=== PATIENT | male | born 1980 | race African-American/Black ===

== ENCOUNTER 2021-11-20 13:42 | Inpatient (IN) | payer OTHER ==
[2021-11-20] VITALS (12 sets, daily range): BP systolic 121–153; BP diastolic 62–83
[~2021-11-20] VITALS: Ht 180.3 cm; Wt 96.2 kg
[2021-11-20] MEDS ORDERED: MIDAZOLAM HCL/PF 5 MG/5 ML VIAL. ONE (13:47)
[2021-11-20] MEDS ORDERED: fentaNYL PF VIAL 100 MCG/2 ML VIAL ONE (13:47)
[2021-11-20] MEDS ORDERED: HEPARIN for IV BOLUS 10,000 UNIT/10 ML VIAL. ONE (13:52)
[2021-11-20 13:57] LABS: BASO % 1 % (0-3); EOS % 0 % (0-3); HEMATOCRIT 41.8 % (39.0-53.0); LYMPH # 1.9 x10^3/uL (1.0-4.8); LYMPH % 26 % (24-48); MEAN CORPUSCULAR HEMOGLOBIN 29 pg (25-35); MEAN CORPUSCULAR HGB CONC 34 g/dL (31-37); MEAN CORPUSCULAR VOLUME 86 fL (79-100); MONO # 0.6 x10^3/uL (0.0-1.1); MONO % 8 % (0-9); NEUT # 4.8 x10^3/uL (1.8-7.7); NEUT % 65 % (31-73); PLATELET COUNT 281 x10^3/uL (140-400); RED BLOOD COUNT 4.87 x10^6/uL (4.30-5.70); RED CELL DISTRIBUTION WIDTH 15.5 % (11.5-14.5); WHITE BLOOD COUNT 7.4 x10^3/uL (4.0-11.0)
[2021-11-20] MEDS ORDERED: HEPARIN for IV BOLUS 10,000 UNIT/10 ML VIAL. IV ONE (14:00)
[2021-11-20 14:11] LABS: CALCIUM 8.4 mg/dL (8.5-10.1); CREATININE 1.4 mg/dL (0.7-1.3); GFR 55.8; POTASSIUM 3.1 mmol/L (3.5-5.1)
[2021-11-20] MEDS ORDERED: BIVALIRUDIN 250 MG VIAL. IVP ONE ×2 (14:13→14:30)
--- NOTE | 2021-11-20 14:13 | PHYS DOC ---
General Adult EDM: Chief Complaint: CHEST PAIN-CARDIAC NATURE HPI: HPI: 41-year-old male with no known past medical history presents from a nursing home with possible STEMI as called out by EMS. On arrival the patient appears uncomfortable and diaphoretic. States that the middle of his chest started hurting today. No known radiation of the pain. Denies using any drugs. No fever or chills. No vomiting or diarrhea. Denies any trauma. Review of Systems: Review of Systems: Constitutional: Denies fever or chills. [] Eyes: Denies change in visual acuity. [] HENT: Denies nasal congestion or sore throat. [] Respiratory: Denies cough or shortness of breath. [] Cardiovascular: Positive for chest pain GI: Denies abdominal pain, nausea, vomiting, bloody stools or diarrhea. [] : Denies dysuria. [] Musculoskeletal: Denies back pain or joint pain. [] Integument: Denies rash. [] Neurologic: Denies headache, focal weakness or sensory changes. [] Endocrine: Denies polyuria or polydipsia. [] Lymphatic: Denies swollen glands. [] Psychiatric: Denies depression or anxiety. [] Heart Score: C/O Chest Pain: Yes Risk Factors: Risk Factors: DM, Current or recent (<one month) smoker, HTN, HLP, family history of CAD, obesity. Risk Scores: Score 0 - 3: 2.5% MACE over next 6 weeks - Discharge Home Score 4 - 6: 20.3% MACE over next 6 weeks - Admit for Clinical Observation Score 7 - 10: 72.7% MACE over next 6 weeks - Early Invasive Strategies Current Medications: Current Medications Medications (Trade) Dose Ordered Sig/[facility] Start Time Stop Time Status Last Admin Dose Admin Fentanyl Citrate (Fentanyl 2ml Vial) 100 mcg 1X ONCE 11/20/21 14:15 11/20/21 14:16 UNV Heparin Sodium (Porcine) (Heparin Sodium) 2,500 unit 1X ONCE 11/20/21 14:15 11/20/21 14:16 UNV Heparin Sodium/ Sodium Chloride (HEPARIN for ARTERIAL LINE FLUSH) 1,000 unit 1X ONCE 11/20/21 14:15 11/20/21 14:16 UNV Iodixanol (Visipaque 320) 100 ml 1X ONCE 11/20/21 14:15 11/20/21 14:16 UNV Lidocaine HCl (Lidocaine 1% 20ml Vial) 20 ml 1X ONCE 11/20/21 14:15 11/20/21 14:16 UNV Midazolam HCl (Versed) 5 mg 1X ONCE 11/20/21 14:15 11/20/21 14:16 UNV Nitroglycerin (Nitroglycerin) 200 mcg 1X ONCE 11/20/21 14:15 11/20/21 14:16 UNV Verapamil HCl (Verapamil) 2.5 mg 1X ONCE 11/20/21 14:15 11/20/21 14:16 UNV Allergies: Allergies: Allergies Coded Allergies Type Severity Reaction Last Updated Verified No Known Drug Allergies 11/20/21 No Physical Exam: PE: Constitutional: Well developed, well nourished, no acute distress, non-toxic appearance. [] HENT: Normocephalic, atraumatic, bilateral external ears normal, oropharynx moist, no oral exudates, nose normal. [] Eyes: PERRLA, EOMI, conjunctiva normal, no discharge. [] Neck: Normal range of motion, no tenderness, supple, no stridor. [] Cardiovascular:Heart rate regular rhythm, no murmur [] Lungs & Thorax: Bilateral breath sounds clear to auscultation [] Abdomen: Bowel sounds normal, soft, no tenderness, no masses, no pulsatile masses. [] Skin: Warm, dry, no erythema, no rash. [] Back: No tenderness, no CVA tenderness. [] Extremities: No tenderness, no cyanosis, no clubbing, ROM intact, no edema. [] Neurologic: Alert and oriented X 3, normal motor function, normal sensory function, no focal deficits noted. [] Psychologic: Affect normal, judgement normal, mood normal. [] Current Patient Data: Labs: Laboratory Tests Test 11/20/21 13:45 White Blood Count 7.4 x10^3/uL (4.0-11.0) Red Blood Count 4.87 x10^6/uL (4.30-5.70) Hemoglobin 14.0 g/dL (13.0-17.5) Hematocrit 41.8 % (39.0-53.0) Mean Corpuscular Volume 86 fL (79-100) Mean Corpuscular Hemoglobin 29 pg (25-35) Mean Corpuscular Hemoglobin Concent 34 g/dL (31-37) Red Cell Distribution Width 15.5 % (11.5-14.5) H Platelet Count 281 x10^3/uL (140-400) Neutrophils (%) (Auto) 65 % (31-73) Lymphocytes (%) (Auto) 26 % (24-48) Monocytes (%) (Auto) 8 % (0-9) Eosinophils (%) (Auto) 0 % (0-3) Basophils (%) (Auto) 1 % (0-3) Neutrophils # (Auto) 4.8 x10^3/uL (1.8-7.7) Lymphocytes # (Auto) 1.9 x10^3/uL (1.0-4.8) Monocytes # (Auto) 0.6 x10^3/uL (0.0-1.1) Eosinophils # (Auto) 0.0 x10^3/uL (0.0-0.7) Basophils # (Auto) 0.0 x10^3/uL (0.0-0.2) Laboratory Tests 11/20/21 13:45 EKG: EKG: [] Radiology/Procedures: Radiology/Procedures: [] Course & Med Decision Making: Course & Med Decision Making Pertinent Labs and Imaging studies reviewed. (See chart for details) EKG shows a STEMI. Patient was taken immediately to [facility] by the choir leader. Will admit to ICU. Vital signs stable. Labs and imaging are up still pending Dragon Disclaimer: Dragon Disclaimer: This electronic medical record was generated, in whole or in part, using a voice recognition dictation system. Departure Departure Impression: Primary Impression: STEMI (ST elevation myocardial infarction) Disposition: ADMITTED INPATIENT Condition: STABLE AUGUSTINE RENO MD November 20, 2021 14:13
[2021-11-20] MEDS ORDERED: HEPARIN for IV BOLUS 10,000 UNIT/10 ML VIAL. IART ONE (14:15)
[2021-11-20] MEDS ORDERED: fentaNYL PF VIAL 100 MCG/2 ML VIAL IV ONE (14:15)
[2021-11-20] MEDS ORDERED: CONTRAST GIVEN. MC PRN (14:15)
[2021-11-20] MEDS ORDERED: NITROGLYCERIN 200 MCG/2 ML SYRINGE FOR CATH/VASC LAB. IART ONE (14:15)
[2021-11-20] MEDS ORDERED: MIDAZOLAM HCL/PF 5 MG/5 ML VIAL. IV ONE (14:15)
[2021-11-20] MEDS ORDERED: IODIXANOL 320 MG/ML 100 ML VIAL. IART ONE (14:15)
[2021-11-20] MEDS ORDERED: LIDOCAINE 1% Multi-Dose 20 ML VIAL. INJ ONE (14:15)
[2021-11-20] MEDS ORDERED: VERAPAMIL 5 MG/2 ML VIAL. IART ONE (14:15)
[2021-11-20] MEDS ORDERED: IODIXANOL 320 MG/ML 100 ML VIAL. ONE (14:27)
[2021-11-20] MEDS ORDERED: TICAGRELOR 90 MG TABLET. ONE (14:39)
--- NOTE | 2021-11-20 14:41 | RAD ---
Study: XR CHEST 1V Indication: Chest pain. Comparison: None. Findings: Prominence of the cardiomediastinal silhouette but accentuated by low lung volumes and AP technique. Relatively symmetric sameer. Mild basilar atelectasis. No confluent infiltrate, layering effusion or pn eumothorax. Bowel gas seen at the upper abdomen with the overall bowel gas pattern incompletely characterized. No free gas seen under the diaphragm. Grossly intact osseous structures. Impression: No acute radiographic abnormality of the chest. Incomplete inspiration with mild basilar atelectasis. Electronically signed by: WESTON WILLIAM MD (11/20/2021 2:39 PM) [facility]
[2021-11-20] MEDS ORDERED: TICAGRELOR 90 MG TABLET. PO ONE (14:45)
--- NOTE | 2021-11-20 15:14 | PDOC2 ---
CONSULT Date of Consult Date of Consult DATE: 11/20/21 TIME: 15:09 Reason for Consult Reason for Consult: Chest pain. Possible myocardial infarction. Referring Physician Referring Physician: Dr. Rodriges Identification/Chief Complaint Chief Complaint Chest pain Source Source: Chart review, Patient History of Present Illness Reason for Visit: The patient is a 41-year-old male who reported new onset of severe chest pain approximately an hour to an hour and a half ago. Paramedics were called. Initial EKG suggested an anterior ST elevated myocardial infarction. Patient was treated with aspirin and pain medications and transferred to [place] emergency room where an ST CRESCENCIO protocol was already in progress. The patient was met on arrival. His EKG showed ST elevation anteriorly and ST depression inferiorly consistent with a ST elevated myocardial infarction in the anterior wall. He denies any history of coronary disease, congestive heart failure or cardiac arrhythmia. He denies any family history of early coronary disease. He denies any history of hypertension or hyperlipidemia. He is on no medications. He denies any known drug allergies. Past Medical History Cardiovascular: No pertinent hx Past Surgical History Past Surgical History: No pertinent history Family History Family History: Hypertension Current Problem List Problem List Problems Medical Problems: (1) STEMI (ST elevation myocardial infarction) Status: Acute Current Medications Current Medications Current Medications Heparin Sodium (Porcine) (Heparin Sodium) 4,000 unit 1X ONCE IV Last administered on 11/20/21at 13:53; Start 11/20/21 at 14:00; Stop 11/20/21 at 14:02; Status DC Nitroglycerin (Nitroglycerin) 200 mcg 1X ONCE IART ; Start 11/20/21 at 14:15; Stop 11/20/21 at 15:04; Status DC Verapamil HCl (Verapamil) 2.5 mg 1X ONCE IART ; Start 11/20/21 at 14:15; Stop 11/20/21 at 15:04; Status DC Heparin Sodium (Porcine) (Heparin Sodium) 2,500 unit 1X ONCE IART ; Start 11/20/21 at 14:15; Stop 11/20/21 at 15:04; Status DC Heparin Sodium/ Sodium Chloride (HEPARIN for ARTERIAL LINE FLUSH) 1,000 unit 1X ONCE IART Last administered on 11/20/21at 14:54; Start 11/20/21 at 14:15; Stop 11/20/21 at 14:16; Status DC Heparin Sodium/ Sodium Chloride (HEPARIN for ARTERIAL LINE FLUSH) 1,000 unit 1X ONCE IART Last administered on 11/20/21 14:55; Start 11/20/21 at 14:15; Stop 11/20/21 at 14:16; Status DC Midazolam HCl (Versed) 5 mg 1X ONCE IV Last administered on 11/20/21 14:56; Start 11/20/21 at 14:15; Stop 11/20/21 at 14:16; Status DC Fentanyl Citrate (Fentanyl 2ml Vial) 100 mcg 1X ONCE IV Last administered on 11/20/21at 14:56; Start 11/20/21 at 14:15; Stop 11/20/21 at 14:16; Status DC Iodixanol (Visipaque 320) 100 ml 1X ONCE IART Last administered on 11/20/21 14:56; Start 11/20/21 at 14:15; Stop 11/20/21 at 14:16; Status DC Lidocaine HCl (Lidocaine 1% 20ml Vial) 20 ml 1X ONCE INJ Last administered on 11/20/21at 14:57; Start 11/20/21 at 14:15; Stop 11/20/21 at 14:16; Status DC Info (CONTRAST GIVEN -- Rx MONITORING) 1 each PRN DAILY PRN MC SEE COMMENTS; Start 11/20/21 at 14:15; Stop 11/22/21 at 14:14 Bivalirudin (Angiomax) 250 mg 1X ONCE IVP Last administered on 11/20/21at 14:55; Start 11/20/21 at 14:30; Stop 11/20/21 at 14:31; Status DC Dopamine HCl/ Dextrose 250 ml @ 37 mls/hr PRN DAILY PRN IV ELEVATED BP, SEE COMMENTS Last administered on 11/20/21at 14:58; Start 11/20/21 at 14:30 Ticagrelor (Brilinta) 180 mg 1X ONCE PO Last administered on 11/20/21 14:55; Start 11/20/21 at 14:45; Stop 11/20/21 at 14:46; Status DC Allergies Allergies: Coded Allergies: No Known Drug Allergies (Unverified , 11/20/21) ROS Respiratory: YES: Shortness of breath Cardiovascular: yes Chest Pain Physical Exam General: Other (Patient remains in moderate distress despite receiving fentanyl in the ambulance.) Lungs: Clear to auscultation Heart: Regular rate Abdomen: Normal bowel sounds Vitals VITALS Vital Signs Date Time Temp Pulse Resp B/P (MAP) Pulse Ox O2 Delivery O2 Flow Rate FiO2 11/20/21 14:56 23 98 Nasal Cannula 2.0 11/20/21 13:42 97.8 64 164/94 (117) 97.8 Labs Labs Laboratory Tests Test 11/20/21 13:45 White Blood Count 7.4 x10^3/uL (4.0-11.0) Red Blood Count 4.87 x10^6/uL (4.30-5.70) Hemoglobin 14.0 g/dL (13.0-17.5) Hematocrit 41.8 % (39.0-53.0) Mean Corpuscular Volume 86 fL (79-100) Mean Corpuscular Hemoglobin 29 pg (25-35) Mean Corpuscular Hemoglobin Concent 34 g/dL (31-37) Red Cell Distribution Width 15.5 % (11.5-14.5) Platelet Count 281 x10^3/uL (140-400) Neutrophils (%) (Auto) 65 % (31-73) Lymphocytes (%) (Auto) 26 % (24-48) Monocytes (%) (Auto) 8 % (0-9) Eosinophils (%) (Auto) 0 % (0-3) Basophils (%) (Auto) 1 % (0-3) Neutrophils # (Auto) 4.8 x10^3/uL (1.8-7.7) Lymphocytes # (Auto) 1.9 x10^3/uL (1.0-4.8) Monocytes # (Auto) 0.6 x10^3/uL (0.0-1.1) Eosinophils # (Auto) 0.0 x10^3/uL (0.0-0.7) Basophils # (Auto) 0.0 x10^3/uL (0.0-0.2) Sodium Level 141 mmol/L (136-145) Potassium Level 3.1 mmol/L (3.5-5.1) Chloride Level 103 mmol/L (98-107) Carbon Dioxide Level 24 mmol/L (21-32) Anion Gap 14 (6-14) Blood Urea Nitrogen 12 mg/dL (8-26) Creatinine 1.4 mg/dL (0.7-1.3) Estimated GFR (Cockcroft-Gault) 55.8 Glucose Level 155 mg/dL (70-99) Calcium Level 8.4 mg/dL (8.5-10.1) Troponin I High Sensitivity 177 ng/L (4-75) Laboratory Tests Test 11/20/21 13:45 White Blood Count 7.4 x10^3/uL (4.0-11.0) Red Blood Count 4.87 x10^6/uL (4.30-5.70) Hemoglobin 14.0 g/dL (13.0-17.5) Hematocrit 41.8 % (39.0-53.0) Mean Corpuscular Volume 86 fL (79-100) Mean Corpuscular Hemoglobin 29 pg (25-35) Mean Corpuscular Hemoglobin Concent 34 g/dL (31-37) Red Cell Distribution Width 15.5 % (11.5-14.5) Platelet Count 281 x10^3/uL (140-400) Neutrophils (%) (Auto) 65 % (31-73) Lymphocytes (%) (Auto) 26 % (24-48) Monocytes (%) (Auto) 8 % (0-9) Eosinophils (%) (Auto) 0 % (0-3) Basophils (%) (Auto) 1 % (0-3) Neutrophils # (Auto) 4.8 x10^3/uL (1.8-7.7) Lymphocytes # (Auto) 1.9 x10^3/uL (1.0-4.8) Monocytes # (Auto) 0.6 x10^3/uL (0.0-1.1) Eosinophils # (Auto) 0.0 x10^3/uL (0.0-0.7) Basophils # (Auto) 0.0 x10^3/uL (0.0-0.2) Sodium Level 141 mmol/L (136-145) Potassium Level 3.1 mmol/L (3.5-5.1) Chloride Level 103 mmol/L (98-107) Carbon Dioxide Level 24 mmol/L (21-32) Anion Gap 14 (6-14) Blood Urea Nitrogen 12 mg/dL (8-26) Creatinine 1.4 mg/dL (0.7-1.3) Estimated GFR (Cockcroft-Gault) 55.8 Glucose Level 155 mg/dL (70-99) Calcium Level 8.4 mg/dL (8.5-10.1) Troponin I High Sensitivity 177 ng/L (4-75) Images Images EKG as above is consistent with an anterior ST elevated myocardial infarction. Assessment/Plan Assessment/Plan 1. Probable anterior ST elevated myocardial infarction. Patient's EKG and history are consistent with a NSTEMI although the patient is only 41 years old. We discussed the risks and benefits of emergency cardiac catheterization which was recommended. The patient gave informed consent to up to proceed. We will bring the patient emergently to the catheterization lab for cardiac catheterization with possible intervention. IVAN LEE MD November 20, 2021 15:14
--- NOTE | 2021-11-20 15:16 | PDOC4 ---
PROCEDURE Procedure Preliminary procedure note. Emergency cardiac catheterization. Proximal LAD occlusion with no other significant lesions. Successful placement of a 3.0 x 38 drug-eluting stent. No immediate complications. Post STEMI protocol. Full report to follow. IVAN LEE MD November 20, 2021 15:16
--- NOTE | 2021-11-20 15:20 | NUR ---
Received report from Leticia BLANK of terrazzo laborer, patient came by bed, with IV of G18 at left EJ, G20 IV at right hand, ongoing Dopamine drip at 5 mcg/kg/min- to titrate, and NS at 75ml/hr. Alert and oriented x 4, with 1-2 pain scale chest pain. Hooked to cardiac nurse practitioner with pulse oximeter, saturating well, right groin post cardiac site no bleeding noted, pulses (+) normal on all 4 extremities. Flat on bed x 4hrs post procedure instructed, to end at 1845h. Watched out for bleeding. Potassium replacement done as ordered.
[2021-11-20] MEDS ORDERED: ATROPINE 0.5 MG/5 ML DISP.SYRINGE. IV PRN (15:30)
[2021-11-20] MEDS ORDERED: AMIODARONE 150 MG in IV DEXTROSE 5% 100ML 100 ML IV PRN (15:30)
[2021-11-20] MEDS ORDERED: oxyCODONE/APAP 5/325 1 TAB TABLET PO PRN ×3 (15:30→17:30)
[2021-11-20] MEDS ORDERED: NITROGLYCERIN SUBLINGUAL 0.4 MG BOTTLE OF 25. SL PRN (15:30)
[2021-11-20] MEDS ORDERED: 0.9 % SODIUM CHLORIDE 10 ML DISP.SYRIN. IV PRN ×2 (15:30→17:30)
[2021-11-20] MEDS ORDERED: LIDOCAINE 2% 100 MG/5 ML SYRINGE. IV PRN (15:30)
[2021-11-20] MEDS ORDERED: POTASSIUM CHLORIDE 20 MEQ TABLET.ER. PO ONE ×2 (15:45→20:00)
[2021-11-20] MEDS: POTASSIUM CHLORIDE 10MEQ 100 ML IV SCH ×2 (15:59→17:13)
[2021-11-20] MEDS ORDERED: IV NORMAL SALINE 1000ML BAG 1,000 ML IV SCH (16:00)
--- NOTE | 2021-11-20 16:42 | CARD ---
MR#: [id number] Date of Study: 11/20/2021 Ordering Physician: IVAN CHERRY, Referring Physician: IVAN CHERRY, Darius: Maisha Olivares RTR APPROVED REPORT Procedures Left heart catheterization Selective coronary angiogram Drug-eluting stent placement to a proximally occluded LAD The patient is a 41-year-old male who developed chest pain approximately 1 and half hours ago. Lorenzo edics were called and initial EKG suggested an anterior ST elevated myocardial infarction. He was tr eated with aspirin and pain medications and brought emergently to the [facility] emergency room. The patient was met when he arrived in the emergency room. He continued to have chest pain although it had decreased. His EKG showed ST elevation in the anterior leads with inferior depressions suggestiv e of an ST elevated myocardial infarction. Risks and benefits of emergency cardiac catheterization a nd possible intervention were discussed with the patient. He gave consent to proceed. After informed consent was obtained the patient was brought emergently to the catheterization lab. T he area the right femoral artery was prepared in the usual manner with Betadine, sterile draping a lo jorge luis anesthetic. An 18-gauge needle was used to enter the right femoral artery, a wire placed and a 6 Malagasy sheath placed over the wire. A 6 Malagasy Ten diagnostic catheter was used to engage the right coronary artery and sequential injections of various views were obtained. A 6 Malagasy JL 4 guid e was used to engage the left coronary system and sequential injections of various views were obtaine d. The patient was found to have a proximal LAD occlusion. We proceeded to revascularize the vessel . Angiomax as per protocol was administered. The occlusion was crossed with a PT choice wire. Initial dilatations were with a 2.75 x 20 Euphora balloon with 3 inflations maximum pressure of 16 dipti maxim um time of 15 seconds. Following this a 3.0 x 38 mm Prometheus Elite drug-eluting stent was deployed with 1 inflation at 16 dipti for 15 seconds. Following this the stent was postdilated with a 3.5 x 27 NC Euphora balloon with 2 inflations at 16 dipti for 15 seconds. Residual lesion was 0%. Patient's p ain significantly improved. After injection of the sheath confirmed placement it removed and sealed with an Angio-Seal product. There were no immediate complications. Findings. Hemodynamics. LV pressure of 130/6/30. Aortic root pressure of 128/86. Coronaries. Left main. The left main was a normal size vessel without lesions. Left anterior descending. The LAD had a proximal occlusion. Left circumflex. The left circumflex was normal size vessel with mild diffuse irregularities. Right coronary artery. The right coronary was a normal size vessel also with mild diffuse irregulari ties. <Conclusion> ST elevated myocardial infarction secondary to a proximal occlusion of the LAD. Successful drug-eluting stent placement to the LAD with 0% residual. No other significant lesions present. Elevated LVEDP of 30 mmHg with acute systolic heart failure. Fluoroscopy time. 11 minutes. Dose. 80 Gycm2 Contrast. 182 cc of VISI Moderate sedation time of 74 minutes. All protective equipment was used during the procedure. The patient was independently monitored during the procedure. Total blood loss of 20 cc. Signed by : Ivan Cherry MD Electronically Approved : 11/20/2021 16:42:30
[2021-11-20] MEDS ORDERED: ACETAMINOPHEN 325 MG TABLET. PO PRN (17:30)
[2021-11-20] MEDS ORDERED: CALCIUM CARBONATE 500 MG TAB.CHEW PO PRN (17:30)
[2021-11-20] MEDS ORDERED: ONDANSETRON PF 4 MG/2 ML VIAL. IVP PRN (17:30)
--- NOTE | 2021-11-20 17:33 | PDOC1 ---
History and Physical Date of Service: DOS: DATE: 11/20/21 TIME: 17:33 Chief Complaint: Chief Complain: Chest pain History of Present Illness: HPI: Patient is a 41-year-old -[place] male presented to the emergency room today for on the presenting due to 60 to 90 minutes of chest pain. Patient reported me pain began this morning and became very severe very quickly. EMS called and EKG showed anterior STEMI and patient was transferred here STEMI protocol initiated. ASA given en route. EKG on arrival here confirmed findings of anterior STEMI and patient was brought emergently to the [facility]. Patient was found of proximal LAD occlusion that was successfully opened with drug-eluting stent placement. Remained stable after procedure transferred to ICU. When I evaluated the patient he was resting in bed. Reported to me that chest was feeling a little bit sore but much better from earlier. Denies any cardiac history to me. Denying any shortness of breath dizziness vision changes abdominal pain. No known family history of early cardiac disease. Monitor in ICU overnight. Allergies: Allergies: Coded Allergies: No Known Drug Allergies (Unverified , 11/20/21) Family History: Family History: Hypertension Social History: Social History: Denies alcohol tobacco drug use Current Medications: Current Medications Current Medications Heparin Sodium (Porcine) (Heparin Sodium) 4,000 unit 1X ONCE IV Last administered on 11/20/21at 13:53; Start 11/20/21 at 14:00; Stop 11/20/21 at 14:02; Status DC Nitroglycerin (Nitroglycerin) 200 mcg 1X ONCE IART ; Start 11/20/21 at 14:15; Stop 11/20/21 at 15:04; Status DC Verapamil HCl (Verapamil) 2.5 mg 1X ONCE IART ; Start 11/20/21 at 14:15; Stop 11/20/21 at 15:04; Status DC Heparin Sodium (Porcine) (Heparin Sodium) 2,500 unit 1X ONCE IART ; Start 11/20/21 at 14:15; Stop 11/20/21 at 15:04; Status DC Heparin Sodium/ Sodium Chloride (HEPARIN for ARTERIAL LINE FLUSH) 1,000 unit 1X ONCE IART Last administered on 11/20/21at 14:54; Start 11/20/21 at 14:15; Stop 11/20/21 at 14:16; Status DC Heparin Sodium/ Sodium Chloride (HEPARIN for ARTERIAL LINE FLUSH) 1,000 unit 1X ONCE IART Last administered on 11/20/21at 14:55; Start 11/20/21 at 14:15; Stop 11/20/21 at 14:16; Status DC Midazolam HCl (Versed) 5 mg 1X ONCE IV Last administered on 11/20/21at 14:56; Start 11/20/21 at 14:15; Stop 11/20/21 at 14:16; Status DC Fentanyl Citrate (Fentanyl 2ml Vial) 100 mcg 1X ONCE IV Last administered on 11/20/21at 14:56; Start 11/20/21 at 14:15; Stop 11/20/21 at 14:16; Status DC Iodixanol (Visipaque 320) 100 ml 1X ONCE IART Last administered on 11/20/21at 14:56; Start 11/20/21 at 14:15; Stop 11/20/21 at 14:16; Status DC Lidocaine HCl (Lidocaine 1% 20ml Vial) 20 ml 1X ONCE INJ Last administered on 11/20/21at 14:57; Start 11/20/21 at 14:15; Stop 11/20/21 at 14:16; Status DC Info (CONTRAST GIVEN -- Rx MONITORING) 1 each PRN DAILY PRN MC SEE COMMENTS; Start 11/20/21 at 14:15; Stop 11/22/21 at 14:14 Bivalirudin (Angiomax) 250 mg 1X ONCE IVP Last administered on 11/20/21at 14:55; Start 11/20/21 at 14:30; Stop 11/20/21 at 14:31; Status DC Dopamine HCl/ Dextrose 250 ml @ 37 mls/hr PRN DAILY PRN IV ELEVATED BP, SEE COMMENTS Last administered on 11/20/21at 14:58; Start 11/20/21 at 14:30 Ticagrelor (Brilinta) 180 mg 1X ONCE PO Last administered on 11/20/21at 14:55; Start 11/20/21 at 14:45; Stop 11/20/21 at 14:46; Status DC Fentanyl Citrate (Fentanyl 2ml Vial) 100 mcg STK-MED ONCE .ROUTE ; Start 11/20/21 at 13:47; Stop 11/20/21 at 15:05; Status DC Midazolam HCl (Versed) 5 mg STK-MED ONCE .ROUTE ; Start 11/20/21 at 13:47; Stop 11/20/21 at 15:05; Status DC Heparin Sodium (Porcine) (Heparin Sodium) 10,000 unit STK-MED ONCE .ROUTE ; Start 11/20/21 at 13:52; Stop 11/20/21 at 15:05; Status DC Bivalirudin (Angiomax) 250 mg STK-MED ONCE IVP ; Start 11/20/21 at 14:13; Stop 11/20/21 at 15:05; Status DC Dopamine HCl/ Dextrose 250 ml @ As Directed STK-MED ONCE IV ; Start 11/20/21 at 14:25; Stop 11/20/21 at 15:05; Status DC Iodixanol (Visipaque 320) 100 ml STK-MED ONCE .ROUTE ; Start 11/20/21 at 14:27; Stop 11/20/21 at 15:05; Status DC Ticagrelor (Brilinta) 90 mg STK-MED ONCE .ROUTE ; Start 11/20/21 at 14:39; Stop 11/20/21 at 15:05; Status DC Sodium Chloride (Normal Saline Flush) 3 ml QSHIFT PRN IV AFTER MEDS AND BLOOD DRAWS; Start 11/20/21 at 15:30 Sodium Chloride 1,000 ml @ 75 mls/hr [id number] IV Last administered on 11/20/21at 15:59; Start 11/20/21 at 16:00; Stop 11/20/21 at 16:01; Status DC Aspirin (Ecotrin) 81 mg DAILYWBKFT PO ; Start 11/21/21 at 08:00 Ticagrelor (Brilinta) 90 mg BID PO ; Start 11/21/21 at 09:00 Metoprolol Tartrate (Lopressor) 25 mg BID PO ; Start 11/20/21 at 21:00 Lisinopril (Prinivil) 5 mg DAILY PO ; Start 11/21/21 at 09:00 Atorvastatin Calcium (Lipitor) 20 mg QHS PO ; Start 11/20/21 at 21:00 Nitroglycerin (Nitrostat) 0.4 mg PRN Q5MIN PRN SL CHEST PAIN; Start 11/20/21 at 15:30 Amiodarone HCl 150 mg/Dextrose 103 ml @ 600 mls/hr 1X PRN PRN IV FOR VENTRICULAR TACHYCARDIA; Start 11/20/21 at 15:30 Lidocaine HCl (Lidocaine HCl 2% Abboject) 100 mg 1X PRN PRN IV FOR VENTRICULAR TACHYCARDIA; Start 11/20/21 at 15:30 Atropine Sulfate (ATROPINE 0.5mg SYRINGE) 0.5 mg PRN 1X PRN IV BRADYCARDIA; Start 11/20/21 at 15:30 Oxycodone/ Acetaminophen (Percocet 5/325) 1 tab PRN Q4HRS PRN PO MILD PAIN 1-3; Start 11/20/21 at 15:30 Potassium Chloride (Klor-Con) 20 meq 1X ONCE PO ; Start 11/20/21 at 15:45; Stop 11/20/21 at 15:45; Status DC Potassium Chloride (Klor-Con) 20 meq 1X ONCE PO ; Start 11/20/21 at 20:00; Stop 11/20/21 at 20:01 Potassium Chloride/Water 100 ml @ 100 mls/hr Q1H IV Last administered on 11/20/21at 17:13; Start 11/20/21 at 16:00; Stop 11/20/21 at 17:59 ROS: Review of Systems Review of System Unless noted in HPI 14 point review of systems was negative Physical Exam: Vital Signs: Vital Signs Date Time Temp Pulse Resp B/P (MAP) Pulse Ox O2 Delivery O2 Flow Rate FiO2 11/20/21 17:00 72 16 121/70 98 Room Air 11/20/21 16:00 97.8 97.8 11/20/21 15:04 2.0 Physcial Exam: GEN: No apparent distress. Alert and oriented HEENT: Normal cephalic, atraumatic, external auditory canals are patent EYES: Extraocular muscles are intact, pupil are equally round and reactive to light and accommodation MUSCULOSKELETAL: Well developed , well nourished, good range of motion ENDOCRINE: No thyromegaly was palpated LYMPHATICS: No cervical chain or axillary nodes were noted HEMATOPOIETIC: No bruising NECK: Supple, no JVD, no thyromegaly was noted LUNGS: Clear to auscultation in all lung soria without rhonchi or wheezing HEART: RRR, S!, S2 present. Peripheral pulses intact, no obvious murmurs noted ABDOMEN: Soft, nontender. Positive bowel sounds, no organomegaly, normal bowel sounds EXTREMITIES: Without clubbing, cyanosis, or edema. Pedal pulses intact. Negative Homans sign NEUROLOGIC: Normal speech and tone. A&O x 3, moves all extremities, no obvious focal deficits PSYCHIATRIC: Normal affect, normal mood. Stable SKIN: No ulcerations or rashes, good skin turgor, no jaundice VASCULAR: Good capillary refill, neurovascular bundle appears to be intact Labs: Labs: Laboratory Tests Test 11/20/21 13:45 White Blood Count 7.4 x10^3/uL (4.0-11.0) Red Blood Count 4.87 x10^6/uL (4.30-5.70) Hemoglobin 14.0 g/dL (13.0-17.5) Hematocrit 41.8 % (39.0-53.0) Mean Corpuscular Volume 86 fL (79-100) Mean Corpuscular Hemoglobin 29 pg (25-35) Mean Corpuscular Hemoglobin Concent 34 g/dL (31-37) Red Cell Distribution Width 15.5 % (11.5-14.5) Platelet Count 281 x10^3/uL (140-400) Neutrophils (%) (Auto) 65 % (31-73) Lymphocytes (%) (Auto) 26 % (24-48) Monocytes (%) (Auto) 8 % (0-9) Eosinophils (%) (Auto) 0 % (0-3) Basophils (%) (Auto) 1 % (0-3) Neutrophils # (Auto) 4.8 x10^3/uL (1.8-7.7) Lymphocytes # (Auto) 1.9 x10^3/uL (1.0-4.8) Monocytes # (Auto) 0.6 x10^3/uL (0.0-1.1) Eosinophils # (Auto) 0.0 x10^3/uL (0.0-0.7) Basophils # (Auto) 0.0 x10^3/uL (0.0-0.2) Sodium Level 141 mmol/L (136-145) Potassium Level 3.1 mmol/L (3.5-5.1) Chloride Level 103 mmol/L (98-107) Carbon Dioxide Level 24 mmol/L (21-32) Anion Gap 14 (6-14) Blood Urea Nitrogen 12 mg/dL (8-26) Creatinine 1.4 mg/dL (0.7-1.3) Estimated GFR (Cockcroft-Gault) 55.8 Glucose Level 155 mg/dL (70-99) Calcium Level 8.4 mg/dL (8.5-10.1) Troponin I High Sensitivity 177 ng/L (4-75) Laboratory Tests Test 11/20/21 13:45 White Blood Count 7.4 x10^3/uL (4.0-11.0) Red Blood Count 4.87 x10^6/uL (4.30-5.70) Hemoglobin 14.0 g/dL (13.0-17.5) Hematocrit 41.8 % (39.0-53.0) Mean Corpuscular Volume 86 fL (79-100) Mean Corpuscular Hemoglobin 29 pg (25-35) Mean Corpuscular Hemoglobin Concent 34 g/dL (31-37) Red Cell Distribution Width 15.5 % (11.5-14.5) Platelet Count 281 x10^3/uL (140-400) Neutrophils (%) (Auto) 65 % (31-73) Lymphocytes (%) (Auto) 26 % (24-48) Monocytes (%) (Auto) 8 % (0-9) Eosinophils (%) (Auto) 0 % (0-3) Basophils (%) (Auto) 1 % (0-3) Neutrophils # (Auto) 4.8 x10^3/uL (1.8-7.7) Lymphocytes # (Auto) 1.9 x10^3/uL (1.0-4.8) Monocytes # (Auto) 0.6 x10^3/uL (0.0-1.1) Eosinophils # (Auto) 0.0 x10^3/uL (0.0-0.7) Basophils # (Auto) 0.0 x10^3/uL (0.0-0.2) Sodium Level 141 mmol/L (136-145) Potassium Level 3.1 mmol/L (3.5-5.1) Chloride Level 103 mmol/L (98-107) Carbon Dioxide Level 24 mmol/L (21-32) Anion Gap 14 (6-14) Blood Urea Nitrogen 12 mg/dL (8-26) Creatinine 1.4 mg/dL (0.7-1.3) Estimated GFR (Cockcroft-Gault) 55.8 Glucose Level 155 mg/dL (70-99) Calcium Level 8.4 mg/dL (8.5-10.1) Troponin I High Sensitivity 177 ng/L (4-75) Assessment/Plan Assessment/Plan Anterior STEMI status post cardiac cath found to have proximal LAD occlusion 1 BLANKA deployed -Presented for chest pain. Found to have STEMI urgently taken to cardiac [facility] -1 BLANKA placed for LAD occlusion -Started on aspirin and Brilinta metoprolol lisinopril after procedure -Can continue this for now. Cardiology recommendations reviewed. -Monitor in ICU overnight -As needed pain control. -Cardiac diet 35 minutes critical care time. Justifications for Admission Other Justification ADRIENNE MILLER MD November 20, 2021 17:33
[2021-11-20] MEDS: METOPROLOL TART IMMED RELEASE 25 MG TABLET. PO SCH (20:47)
[2021-11-20] MEDS: ATORVASTATIN CALCIUM 20 MG TABLET PO SCH (20:48)
[2021-11-20] MEDS: SENNOSIDES/DOCUSATE 8.6/50MG TABLET. PO SCH (20:48)
[2021-11-21] VITALS (24 sets, daily range): BP systolic 96–158; BP diastolic 53–99
[2021-11-21 05:24] LABS: BASO % 0 % (0-3); EOS % 0 % (0-3); HEMATOCRIT 42.6 % (39.0-53.0); HEMOGLOBIN 14.5 g/dL (13.0-17.5); LYMPH # 1.3 x10^3/uL (1.0-4.8); LYMPH % 18 % (24-48); MEAN CORPUSCULAR HEMOGLOBIN 29 pg (25-35); MEAN CORPUSCULAR HGB CONC 34 g/dL (31-37); MEAN CORPUSCULAR VOLUME 85 fL (79-100); MONO # 0.8 x10^3/uL (0.0-1.1); MONO % 11 % (0-9); NEUT # 5.4 x10^3/uL (1.8-7.7); NEUT % 71 % (31-73); PLATELET COUNT 250 x10^3/uL (140-400); RED BLOOD COUNT 4.99 x10^6/uL (4.30-5.70); RED CELL DISTRIBUTION WIDTH 15.4 % (11.5-14.5); WHITE BLOOD COUNT 7.6 x10^3/uL (4.0-11.0)
[2021-11-21 05:55] LABS: ALBUMIN 3.6 g/dL (3.4-5.0); CALCIUM 8.6 mg/dL (8.5-10.1); DIRECT BILIRUBIN 0.2 mg/dL (0.0-0.2); GFR 99.6; MAGNESIUM 1.6 mg/dL (1.8-2.4); POTASSIUM 4.2 mmol/L (3.5-5.1); TOTAL BILIRUBIN 0.8 mg/dL (0.2-1.0); TOTAL PROTEIN 7.5 g/dL (6.4-8.2)
[2021-11-21 05:59] LABS: CHOLESTEROL/HDL RATIO 3.7
[2021-11-21] MEDS ORDERED: MAGNESIUM SULFATE 2GM 50 ML IV ONE (08:00)
[2021-11-21] MEDS: METOPROLOL TART IMMED RELEASE 25 MG TABLET. PO SCH ×2 (08:28→21:19)
[2021-11-21] MEDS: ASPIRIN ENTERIC COATED 81 MG TABLET.DR. PO SCH (08:28)
[2021-11-21] MEDS: SENNOSIDES/DOCUSATE 8.6/50MG TABLET. PO SCH ×2 (09:00→21:00)
[2021-11-21] MEDS: ELECTROLYTE (ICU) PROTOCOL. MC SCH (09:00)
[2021-11-21] MEDS: TICAGRELOR 90 MG TABLET. PO SCH ×2 (10:02→21:19)
[2021-11-21] MEDS: LISINOPRIL 5 MG TABLET. PO SCH (10:02)
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
--- NOTE | 2021-11-21 13:43 | PDOC ---
PROGRESS NOTES Date of Service DATE: 11/21/21 TIME: 13:41 Subjective Subjective Patient seen and examined Objective Objective Vital Signs Date Time Temp Pulse Resp B/P (MAP) Pulse Ox O2 Delivery O2 Flow Rate FiO2 11/21/21 13:00 70 18 135/68 97 Room Air 11/21/21 12:00 99.0 99.0 11/20/21 15:04 2.0 Intake and Output 11/21/21 07:00 Intake Total 1347.27 ml Output Total 1800 ml Balance -452.73 ml Intake Oral 960 ml IV Total 387.27 ml Output Urine Total 1800 ml Physical Exam Abdomen: Normal bowel sounds Heart: Regular rate General: No acute distress Lungs: Clear to auscultation Assessment Assessment Problems Medical Problems: (1) STEMI (ST elevation myocardial infarction) Status: Acute 1. ST elevated myocardial infarction. Proximal LAD occlusion open with a drug-coated stent. Patient's rhythm has remained stable overnight. He is chest pain-free and denies shortness of breath. Peak troponin of 114, 076. We will continue medical treatment. Gradually increase activity. Check an echocardiogram. 2. Hypokalemia. Replace. Potassium level today of 4.2. 3. Hyperlipidemia. Statins have been started. Comment Review of Relevant I have reviewed the following items leatha (where applicable) has been applied. Labs Laboratory Tests Test 11/20/21 13:45 11/21/21 04:45 11/21/21 11:51 White Blood Count 7.4 x10^3/uL (4.0-11.0) 7.6 x10^3/uL (4.0-11.0) Red Blood Count 4.87 x10^6/uL (4.30-5.70) 4.99 x10^6/uL (4.30-5.70) Hemoglobin 14.0 g/dL (13.0-17.5) 14.5 g/dL (13.0-17.5) Hematocrit 41.8 % (39.0-53.0) 42.6 % (39.0-53.0) Mean Corpuscular Volume 86 fL (79-100) 85 fL (79-100) Mean Corpuscular Hemoglobin 29 pg (25-35) 29 pg (25-35) Mean Corpuscular Hemoglobin Concent 34 g/dL (31-37) 34 g/dL (31-37) Red Cell Distribution Width 15.5 % (11.5-14.5) 15.4 % (11.5-14.5) Platelet Count 281 x10^3/uL (140-400) 250 x10^3/uL (140-400) Neutrophils (%) (Auto) 65 % (31-73) 71 % (31-73) Lymphocytes (%) (Auto) 26 % (24-48) 18 % (24-48) Monocytes (%) (Auto) 8 % (0-9) 11 % (0-9) Eosinophils (%) (Auto) 0 % (0-3) 0 % (0-3) Basophils (%) (Auto) 1 % (0-3) 0 % (0-3) Neutrophils # (Auto) 4.8 x10^3/uL (1.8-7.7) 5.4 x10^3/uL (1.8-7.7) Lymphocytes # (Auto) 1.9 x10^3/uL (1.0-4.8) 1.3 x10^3/uL (1.0-4.8) Monocytes # (Auto) 0.6 x10^3/uL (0.0-1.1) 0.8 x10^3/uL (0.0-1.1) Eosinophils # (Auto) 0.0 x10^3/uL (0.0-0.7) 0.0 x10^3/uL (0.0-0.7) Basophils # (Auto) 0.0 x10^3/uL (0.0-0.2) 0.0 x10^3/uL (0.0-0.2) Sodium Level 141 mmol/L (136-145) 136 mmol/L (136-145) Potassium Level 3.1 mmol/L (3.5-5.1) 4.2 mmol/L (3.5-5.1) Chloride Level 103 mmol/L (98-107) 100 mmol/L (98-107) Carbon Dioxide Level 24 mmol/L (21-32) 26 mmol/L (21-32) Anion Gap 14 (6-14) 10 (6-14) Blood Urea Nitrogen 12 mg/dL (8-26) 9 mg/dL (8-26) Creatinine 1.4 mg/dL (0.7-1.3) 1.0 mg/dL (0.7-1.3) Estimated GFR (Cockcroft-Gault) 55.8 99.6 Glucose Level 155 mg/dL (70-99) 110 mg/dL (70-99) Calcium Level 8.4 mg/dL (8.5-10.1) 8.6 mg/dL (8.5-10.1) Troponin I High Sensitivity 177 ng/L (4-75) 207891 ng/L (4-75) Magnesium Level 1.6 mg/dL (1.8-2.4) Total Bilirubin 0.8 mg/dL (0.2-1.0) Direct Bilirubin 0.2 mg/dL (0.0-0.2) Aspartate Amino Transf (AST/SGOT) 521 U/L (15-37) Alanine Aminotransferase (ALT/SGPT) 84 U/L (16-63) Alkaline Phosphatase 53 U/L (46-116) Total Protein 7.5 g/dL (6.4-8.2) Albumin 3.6 g/dL (3.4-5.0) Triglycerides Level 48 mg/dL (0-150) Cholesterol Level 187 mg/dL (0-200) LDL Cholesterol, Calculated 126 mg/dL (0-100) VLDL Cholesterol, Calculated 10 mg/dL (0-40) Non-HDL Cholesterol Calculated 136 mg/dL (0-129) HDL Cholesterol 51 mg/dL (40-60) Cholesterol/HDL Ratio 3.7 Laboratory Tests Test 11/20/21 13:45 11/21/21 04:45 11/21/21 11:51 White Blood Count 7.4 x10^3/uL (4.0-11.0) 7.6 x10^3/uL (4.0-11.0) Red Blood Count 4.87 x10^6/uL (4.30-5.70) 4.99 x10^6/uL (4.30-5.70) Hemoglobin 14.0 g/dL (13.0-17.5) 14.5 g/dL (13.0-17.5) Hematocrit 41.8 % (39.0-53.0) 42.6 % (39.0-53.0) Mean Corpuscular Volume 86 fL (79-100) 85 fL (79-100) Mean Corpuscular Hemoglobin 29 pg (25-35) 29 pg (25-35) Mean Corpuscular Hemoglobin Concent 34 g/dL (31-37) 34 g/dL (31-37) Red Cell Distribution Width 15.5 % (11.5-14.5) 15.4 % (11.5-14.5) Platelet Count 281 x10^3/uL (140-400) 250 x10^3/uL (140-400) Neutrophils (%) (Auto) 65 % (31-73) 71 % (31-73) Lymphocytes (%) (Auto) 26 % (24-48) 18 % (24-48) Monocytes (%) (Auto) 8 % (0-9) 11 % (0-9) Eosinophils (%) (Auto) 0 % (0-3) 0 % (0-3) Basophils (%) (Auto) 1 % (0-3) 0 % (0-3) Neutrophils # (Auto) 4.8 x10^3/uL (1.8-7.7) 5.4 x10^3/uL (1.8-7.7) Lymphocytes # (Auto) 1.9 x10^3/uL (1.0-4.8) 1.3 x10^3/uL (1.0-4.8) Monocytes # (Auto) 0.6 x10^3/uL (0.0-1.1) 0.8 x10^3/uL (0.0-1.1) Eosinophils # (Auto) 0.0 x10^3/uL (0.0-0.7) 0.0 x10^3/uL (0.0-0.7) Basophils # (Auto) 0.0 x10^3/uL (0.0-0.2) 0.0 x10^3/uL (0.0-0.2) Sodium Level 141 mmol/L (136-145) 136 mmol/L (136-145) Potassium Level 3.1 mmol/L (3.5-5.1) 4.2 mmol/L (3.5-5.1) Chloride Level 103 mmol/L (98-107) 100 mmol/L (98-107) Carbon Dioxide Level 24 mmol/L (21-32) 26 mmol/L (21-32) Anion Gap 14 (6-14) 10 (6-14) Blood Urea Nitrogen 12 mg/dL (8-26) 9 mg/dL (8-26) Creatinine 1.4 mg/dL (0.7-1.3) 1.0 mg/dL (0.7-1.3) Estimated GFR (Cockcroft-Gault) 55.8 99.6 Glucose Level 155 mg/dL (70-99) 110 mg/dL (70-99) Calcium Level 8.4 mg/dL (8.5-10.1) 8.6 mg/dL (8.5-10.1) Troponin I High Sensitivity 177 ng/L (4-75) 992761 ng/L (4-75) Magnesium Level 1.6 mg/dL (1.8-2.4) Total Bilirubin 0.8 mg/dL (0.2-1.0) Direct Bilirubin 0.2 mg/dL (0.0-0.2) Aspartate Amino Transf (AST/SGOT) 521 U/L (15-37) Alanine Aminotransferase (ALT/SGPT) 84 U/L (16-63) Alkaline Phosphatase 53 U/L (46-116) Total Protein 7.5 g/dL (6.4-8.2) Albumin 3.6 g/dL (3.4-5.0) Triglycerides Level 48 mg/dL (0-150) Cholesterol Level 187 mg/dL (0-200) LDL Cholesterol, Calculated 126 mg/dL (0-100) VLDL Cholesterol, Calculated 10 mg/dL (0-40) Non-HDL Cholesterol Calculated 136 mg/dL (0-129) HDL Cholesterol 51 mg/dL (40-60) Cholesterol/HDL Ratio 3.7 Medications Current Medications Heparin Sodium (Porcine) (Heparin Sodium) 4,000 unit 1X ONCE IV Last administered on 11/20/21at 13:53; Start 11/20/21 at 14:00; Stop 11/20/21 at 14:02; Status DC Nitroglycerin (Nitroglycerin) 200 mcg 1X ONCE IART ; Start 11/20/21 at 14:15; Stop 11/20/21 at 15:04; Status DC Verapamil HCl (Verapamil) 2.5 mg 1X ONCE IART ; Start 11/20/21 at 14:15; Stop 11/20/21 at 15:04; Status DC Heparin Sodium (Porcine) (Heparin Sodium) 2,500 unit 1X ONCE IART ; Start 11/20/21 at 14:15; Stop 11/20/21 at 15:04; Status DC Heparin Sodium/ Sodium Chloride (HEPARIN for ARTERIAL LINE FLUSH) 1,000 unit 1X ONCE IART Last administered on 11/20/21at 14:54; Start 11/20/21 at 14:15; Stop 11/20/21 at 14:16; Status DC Heparin Sodium/ Sodium Chloride (HEPARIN for ARTERIAL LINE FLUSH) 1,000 unit 1X ONCE IART Last administered on 11/20/21at 14:55; Start 11/20/21 at 14:15; Stop 11/20/21 at 14:16; Status DC Midazolam HCl (Versed) 5 mg 1X ONCE IV Last administered on 11/20/21at 14:56; Start 11/20/21 at 14:15; Stop 11/20/21 at 14:16; Status DC Fentanyl Citrate (Fentanyl 2ml Vial) 100 mcg 1X ONCE IV Last administered on 11/20/21at 14:56; Start 11/20/21 at 14:15; Stop 11/20/21 at 14:16; Status DC Iodixanol (Visipaque 320) 100 ml 1X ONCE IART Last administered on 11/20/21at 14:56; Start 11/20/21 at 14:15; Stop 11/20/21 at 14:16; Status DC Lidocaine HCl (Lidocaine 1% 20ml Vial) 20 ml 1X ONCE INJ Last administered on 11/20/21at 14:57; Start 11/20/21 at 14:15; Stop 11/20/21 at 14:16; Status DC Info (CONTRAST GIVEN -- Rx MONITORING) 1 each PRN DAILY PRN MC SEE COMMENTS; Start 11/20/21 at 14:15; Stop 11/22/21 at 14:14 Bivalirudin (Angiomax) 250 mg 1X ONCE IVP Last administered on 11/20/21at 14:55; Start 11/20/21 at 14:30; Stop 11/20/21 at 14:31; Status DC Dopamine HCl/ Dextrose 250 ml @ 37 mls/hr PRN DAILY PRN IV ELEVATED BP, SEE COMMENTS Last administered on 11/20/21at 14:58; Start 11/20/21 at 14:30 Ticagrelor (Brilinta) 180 mg 1X ONCE PO Last administered on 11/20/21at 14:55; Start 11/20/21 at 14:45; Stop 11/20/21 at 14:46; Status DC Fentanyl Citrate (Fentanyl 2ml Vial) 100 mcg STK-MED ONCE .ROUTE ; Start 11/20/21 at 13:47; Stop 11/20/21 at 15:05; Status DC Midazolam HCl (Versed) 5 mg STK-MED ONCE .ROUTE ; Start 11/20/21 at 13:47; Stop 11/20/21 at 15:05; Status DC Heparin Sodium (Porcine) (Heparin Sodium) 10,000 unit STK-MED ONCE .ROUTE ; Start 11/20/21 at 13:52; Stop 11/20/21 at 15:05; Status DC Bivalirudin (Angiomax) 250 mg STK-MED ONCE IVP ; Start 11/20/21 at 14:13; Stop 11/20/21 at 15:05; Status DC Dopamine HCl/ Dextrose 250 ml @ As Directed STK-MED ONCE IV ; Start 11/20/21 at 14:25; Stop 11/20/21 at 15:05; Status DC Iodixanol (Visipaque 320) 100 ml STK-MED ONCE .ROUTE ; Start 11/20/21 at 14:27; Stop 11/20/21 at 15:05; Status DC Ticagrelor (Brilinta) 90 mg STK-MED ONCE .ROUTE ; Start 11/20/21 at 14:39; Stop 11/20/21 at 15:05; Status DC Sodium Chloride (Normal Saline Flush) 3 ml QSHIFT PRN IV AFTER MEDS AND BLOOD DRAWS; Start 11/20/21 at 15:30 Sodium Chloride 1,000 ml @ 75 mls/hr [id number] IV Last administered on 11/20/21at 15:59; Start 11/20/21 at 16:00; Stop 11/20/21 at 16:01; Status DC Aspirin (Ecotrin) 81 mg DAILYWBKFT PO Last administered on 11/21/21at 08:28; Start 11/21/21 at 08:00 Ticagrelor (Brilinta) 90 mg BID PO Last administered on 11/21/21at 10:02; Start 11/21/21 at 09:00 Metoprolol Tartrate (Lopressor) 25 mg BID PO Last administered on 11/21/21at 08:28; Start 11/20/21 at 21:00 Lisinopril (Prinivil) 5 mg DAILY PO Last administered on 11/21/21at 10:02; Start 11/21/21 at 09:00 Atorvastatin Calcium (Lipitor) 20 mg QHS PO Last administered on 11/20/21at 20:48; Start 11/20/21 at 21:00 Nitroglycerin (Nitrostat) 0.4 mg PRN Q5MIN PRN SL CHEST PAIN; Start 11/20/21 at 15:30 Amiodarone HCl 150 mg/Dextrose 103 ml @ 600 mls/hr 1X PRN PRN IV FOR VENTRI CULAR TACHYCARDIA; Start 11/20/21 at 15:30 Lidocaine HCl (Lidocaine HCl 2% Abboject) 100 mg 1X PRN PRN IV FOR VENTRICULAR TACHYCARDIA; Start 11/20/21 at 15:30 Atropine Sulfate (ATROPINE 0.5mg SYRINGE) 0.5 mg PRN 1X PRN IV BRADYCARDIA; Start 11/20/21 at 15:30 Oxycodone/ Acetaminophen (Percocet 5/325) 1 tab PRN Q4HRS PRN PO MILD PAIN 1-3; Start 11/20/21 at 15:30 Potassium Chloride (Klor-Con) 20 meq 1X ONCE PO ; Start 11/20/21 at 15:45; Stop 11/20/21 at 15:45; Status DC Potassium Chloride (Klor-Con) 20 meq 1X ONCE PO Last administered on 11/20/21at 20:48; Start 11/20/21 at 20:00; Stop 11/20/21 at 20:01; Status DC Potassium Chloride/Water 100 ml @ 100 mls/hr Q1H IV Last administered on 11/20/21at 17:13; Start 11/20/21 at 16:00; Stop 11/20/21 at 17:59; Status DC Acetaminophen (Tylenol) 650 mg PRN Q6HRS PRN PO Headaches, Temp > 101.5'; Start 11/20/21 at 17:30 Ondansetron HCl (Zofran) 4 mg PRN Q6HRS PRN IVP NAUSEA/VOMITING Last administered on 11/20/21at 19:33; Start 11/20/21 at 17:30 Calcium Carbonate/ Glycine (Tums) 500 mg PRN Q3HRS PRN PO HEARTBURN / GAS; Start 11/20/21 at 17:30 Info (Icu Electrolyte Protocol) 1 ea DAILY MC Last administered on 11/21/21at 09:00; Start 11/21/21 at 09:00 Sodium Chloride (Normal Saline Flush) 3 ml QSHIFT PRN IV AFTER MEDS AND BLOOD DRAWS; Start 11/20/21 at 17:30 Oxycodone/ Acetaminophen (Percocet 5/325) 1 tab PRN Q4HRS PRN PO MILD PAIN, 1ST CHOICE; Start 11/20/21 at 17:30 Oxycodone/ Acetaminophen (Percocet 5/325) 2 tab PRN Q4HRS PRN PO MODERATE PAIN, SEVERE PAIN; Start 11/20/21 at 17:30 Senna/Docusate Sodium (Senna Plus) 1 tab BID PO ; Start 11/20/21 at 21:00 Magnesium Sulfate 50 ml @ 25 mls/hr 1X ONCE IV Last administered on 11/21/21at 08:28; Start 11/21/21 at 08:00; Stop 11/21/21 at 09:59; Status DC Vitals/I & O Vital Sign - Last 24 Hours 11/20/21 11/20/21 11/20/21 11/20/21 13:42 14:56 15:04 15:20 Temp 97.8 97.8 97.8 97.8 Pulse 64 68 87 Resp 18 B/P (MAP) 164/94 (117) 136/64 Pulse Ox 98 96 98 O2 Delivery Nasal Cannula Nasal Cannula Nasal Cannula Room Air O2 Flow Rate 2.0 2.0 2.0 11/20/21 11/20/21 11/20/21 11/20/21 15:26 15:30 15:45 16:00 Temp 97.8 97.8 Pulse 87 87 87 Resp 18 B/P (MAP) 137/63 135/62 136/64 Pulse Ox 97 97 97 97 O2 Delivery Room Air Room Air Room Air Room Air 11/20/21 11/20/21 11/20/2122 16:00 17:00 18:00 19:00 Pulse 72 81 77 Resp 16 17 19 B/P (MAP) 121/70 135/65 137/82 Pulse Ox 98 98 97 O2 Delivery Room Air Room Air Room Air Room Air 11/20/21 11/20/21 11/20/21 11/20/21 20:00 20:10 20:47 21:00 Temp 98.3 98.3 Pulse 75 91 78 Resp 20 19 B/P (MAP) 130/77 130/77 140/83 Pulse Ox 99 95 O2 Delivery Room Air Room Air Room Air 11/20/21 11/20/21 11/20/21 11/21/21 21:48 22:00 23:00 00:00 Temp 99.1 99.1 Pulse 80 67 76 Resp 19 18 19 B/P (MAP) 138/79 153/82 148/77 Pulse Ox 97 98 97 O2 Delivery Room Air Room Air Room Air Room Air 11/21/21 11/21/21 11/21/21 11/21/21 00:29 01:00 02:00 03:00 Pulse 66 63 65 Resp 18 18 18 B/P (MAP) 142/91 158/99 129/80 Pulse Ox 98 97 97 O2 Delivery Room Air Room Air Room Air Room Air 11/21/21 11/21/21 11/21/21 11/21/21 04:00 04:00 05:00 06:00 Temp 98.0 98.0 Pulse 66 64 71 Resp 19 19 19 B/P (MAP) 139/76 134/79 136/80 Pulse Ox 97 98 97 O2 Delivery Room Air Room Air Room Air Room Air 11/21/21 11/21/21 11/21/21 11/21/21 07:00 08:00 08:00 08:28 Temp 99.3 99.3 Pulse 69 70 69 Resp 18 17 B/P (MAP) 124/87 129/84 124/87 Pulse Ox 98 98 O2 Delivery Room Air Room Air Room Air 11/21/21 11/21/21 11/21/21 11/21/21 09:00 10:00 10:02 11:00 Pulse 72 88 69 74 Resp 18 17 16 B/P (MAP) 131/84 134/85 124/87 112/69 Pulse Ox 97 96 96 O2 Delivery Room Air Room Air Room Air 11/21/21 11/21/21 11/21/21 12:00 12:00 13:00 Temp 99.0 99.0 Pulse 78 70 Resp 16 18 B/P (MAP) 119/78 135/68 Pulse Ox 96 97 O2 Delivery Room Air Room Air Room Air Intake and Output 11/20/21 11/20/21 11/21/21 15:00 23:00 07:00 Intake Total 627.27 ml 720 ml Output Total 1100 ml 700 ml Balance -472.73 ml 20 ml Justifications for Admission Other Justification IVAN LEE MD November 21, 2021 13:43
[2021-11-21] MEDS: ATORVASTATIN CALCIUM 20 MG TABLET PO SCH (21:19)
[2021-11-22] VITALS (22 sets, daily range): BP systolic 88–104; BP diastolic 47–67
[2021-11-22 05:22] LABS: CALCIUM 8.6 mg/dL (8.5-10.1); CREATININE 1.1 mg/dL (0.7-1.3); GFR 89.3; PHOSPHORUS 2.6 mg/dL (2.6-4.7); POTASSIUM 3.9 mmol/L (3.5-5.1)
[2021-11-22] MEDS: TICAGRELOR 90 MG TABLET. PO SCH (08:26)
[2021-11-22] MEDS: ASPIRIN ENTERIC COATED 81 MG TABLET.DR. PO SCH (08:26)
[2021-11-22] MEDS: SENNOSIDES/DOCUSATE 8.6/50MG TABLET. PO SCH ×2 (08:26→21:33)
[2021-11-22] MEDS: ELECTROLYTE (ICU) PROTOCOL. MC SCH (09:00)
[2021-11-22] MEDS: METOPROLOL TART IMMED RELEASE 25 MG TABLET. PO SCH (09:10)
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
[2021-11-22] MEDS ORDERED: ASPI-886 PO (10:14)
[2021-11-22] MEDS ORDERED: TICA90TA PO (10:14)
[2021-11-22] MEDS ORDERED: NITR0.4T24 SL (10:14)
[2021-11-22] MEDS ORDERED: ATOR20TA58 PO (10:14)
[2021-11-22] MEDS ORDERED: METO25TA4 PO (10:14)
[2021-11-22] MEDS ORDERED: LISI5TAB15 PO (10:14)
--- NOTE | 2021-11-22 10:15 | SNU/HH DC ---
DISCHARGE ORDERS DISCHARGE INFORMATION: FINAL DIAGNOSIS Problems Medical Problems: (1) STEMI (ST elevation myocardial infarction) Status: Acute CONDITION ON DISCHARGE: Stable CODE STATUS: Code Status: Full SENIOR CARE: SNF STAY <30 DAYS: No HOSPICE: HOSPICE: No HOSPICE EVAL & TREAT: No LTAC: ADMIT TO LTAC: No POST DISCHARGE ORDERS: DIET AFTER DISCHARGE: Cardiac DISCHARGE MEDICATIONS: Home Meds Active Scripts Aspirin (ASPIRIN EC) 81 Mg Tablet.dr, 81 MG PO DAILYWBKFT for . for 90 Days, #90 TAB.SR Prov:CASTLE,NIAL K III DO 11/22/21 Lisinopril (LISINOPRIL) 5 Mg Tablet, 5 MG PO DAILY for . for 90 Days, #90 TAB Prov:CASTLE,NIAL K III DO 11/22/21 Metoprolol Tartrate (METOPROLOL TARTRATE) 25 Mg Tablet, 25 MG PO BID for . for 90 Days, #180 TAB Prov:CASTLE,NIAL K III DO 11/22/21 Nitroglycerin (NITROSTAT) 0.4 Mg Tab.subl, 0.4 MG SL PRN Q5MIN PRN for CHEST PAIN for 30 Days, #25 TAB Prov:CASTLE,NIAL K III DO 11/22/21 Atorvastatin Calcium (ATORVASTATIN CALCIUM) 20 Mg Tablet, 20 MG PO QHS for . for 90 Days, #90 TAB Prov:CASTLE,NIAL K III DO 11/22/21 Ticagrelor (BRILINTA) 90 Mg Tablet, 90 MG PO BID for . for 90 Days, #180 TAB Prov:CASTLE,NIAL K III DO 11/22/21 CASTLE,NIAL K III DO November 22, 2021 10:15
--- NOTE | 2021-11-22 10:42 | CARD ---
MR#: [id number] Date of Study: 11/21/2021 Ordering Physician: BRANDO CHERRY, Referring Physician: BRANDO CHERRY, Tech: Jadiel Colon [facility] APPROVED REPORT EXAM: Two-dimensional and M-mode echocardiogram with Doppler and color Doppler. Other Information Quality : GoodHR: 67bpm Rhythm : NSR INDICATION Cardiac Disease: CAD STEMI RISK FACTORS Smoking No previous cardiac history. 2D DIMENSIONS Left Atrium(2D)3.1 (1.6-4.0cm)IVSd0.9 (0.7-1.1cm) Aortic Root(2D)3.4 (2.0-3.7cm)LVDd5.6 (3.9-5.9cm) LVOT Diameter2.1 (1.8-2.4cm)PWd0.9 (0.7-1.1cm) LVDs4.1 (2.5-4.0cm) Aortic Valve AoV Peak Gene.115.4cm/sAoV VTI21.0cm AO Peak GR.5.3mmHgLVOT Peak Gene.105.8cm/s AO Mean GR.3mmHg Mitral Valve MV E Kwfweaqr49.9cm/sMV DECEL [id number] MV A Fxctabqk65.2cm/sE/A Ratio1.2 Pulmonary Valve PV Peak Pyxgdzaw29.8cm/s Tricuspid Valve TR P. Kvhiavkh851pb/sTR Peak Gr.15mmHg LEFT VENTRICLE The left ventricle is normal size. There is normal left ventricular wall thickness. The systolic func tion is moderate to moderately severely impaired. The Ejection Fraction is 30-35%. Anterior, apical a nd anteroseptal hypokinesis. No left ventricle thrombus noted on this study. There is no ventricular septal defect visualized. There is no left ventricular aneurysm. There is no mass noted in the left v entricle. RIGHT VENTRICLE The right ventricle is normal size. There is normal right ventricular wall thickness. The right ventr icular systolic function is normal. ATRIA The left atrium size is normal. The right atrium size is normal. The interatrial septum is intact wit h no evidence for an atrial septal defect or patent foramen ovale as noted on 2-D or Doppler imaging. AORTIC VALVE The aortic valve is normal in structure and function. Doppler and Color Flow revealed no significant aortic regurgitation. There is no significant aortic valvular stenosis. There is no aortic valvular v egetation. MITRAL VALVE The mitral valve is normal in structure and function. There is no evidence of mitral valve prolapse. There is no mitral valve stenosis. Doppler and Color-flow revealed trace to mild mitral regurgitation . TRICUSPID VALVE The tricuspid valve is normal in structure and function. Doppler and Color Flow revealed mild tricusp id regurgitation. The PA pressure was estimated at 20 mmHg. There is no tricuspid valve prolapse or v egetation. There is no tricuspid valve stenosis. PULMONIC VALVE The pulmonary valve is normal in structure and function. Doppler and Color Flow revealed no pulmonic valvular regurgitation. There is no pulmonic valvular stenosis. GREAT VESSELS The aortic root is normal in size. The ascending aorta is normal in size. The pulmonary artery is nor mal. The IVC is normal in size and collapses >50% with inspiration. PERICARDIAL EFFUSION There is no pleural effusion. There is no evidence of significant pericardial effusion. Critical Notification Critical Value: No <Conclusion> The left ventricle is normal size. The systolic function is moderate to moderately severely impaired. The Ejection Fraction is 30-35%. Anterior, apical and anteroseptal hypokinesis. Doppler and Color Flow revealed no significant aortic regurgitation. There is no significant aortic valvular stenosis. Doppler and Color-flow revealed trace to mild mitral regurgitation. Doppler and Color Flow revealed mild tricuspid regurgitation. The PA pressure was estimated at 20 mmHg. Signed by : Brando Cherry MD Electronically Approved : 11/22/2021 10:42:22
[2021-11-22] MEDS: LISINOPRIL 5 MG TABLET. PO SCH (11:41)
--- NOTE | 2021-11-22 13:13 | PDOC ---
DAVID SILVER JAMES 11/22/21 1313: CARDIO Progress Notes Date and Time Date of Service 11/22/21 Time of Evaluation 1310 Subjective Subjective: No Chest Pain, No shortness of breath, No Palpitations, No Dizziness Vitals Vitals Vital Signs Date Time Temp Pulse Resp B/P (MAP) Pulse Ox O2 Delivery O2 Flow Rate FiO2 11/22/21 12:00 Room Air 11/22/21 12:00 66 16 102/63 (76) 98 11/22/21 07:00 99.1 99.1 Weight Weight [ ] Input and Output Intake and Output Intake and Output 11/22/21 07:00 Intake Total 1580 ml Output Total 1600 ml Balance -20 ml Intake Oral 1530 ml IV Total 50 ml Output Urine Total 1600 ml Laboratory Labs Laboratory Tests Test 11/22/21 04:40 Sodium Level 139 mmol/L (136-145) Potassium Level 3.9 mmol/L (3.5-5.1) Chloride Level 105 mmol/L (98-107) Carbon Dioxide Level 26 mmol/L (21-32) Anion Gap 8 (6-14) Blood Urea Nitrogen 9 mg/dL (8-26) Creatinine 1.1 mg/dL (0.7-1.3) Estimated GFR (Cockcroft-Gault) 89.3 Glucose Level 102 mg/dL (70-99) Calcium Level 8.6 mg/dL (8.5-10.1) Phosphorus Level 2.6 mg/dL (2.6-4.7) Magnesium Level 2.0 mg/dL (1.8-2.4) Physical Exam HEENT: Neck Supple W Full Motion Chest: Symmetric LUNGS: Clear to Auscultation Heart: RRR Abdomen: Soft N/T Extremities: No Edema, Other (right groin arteriotomy site soft, clean, and dry. No hematoma present. Neurovascular status intact. ) Neurology: alert, oriented, follow commands Assessment Assessment 1. STEMI 2. CAD s/p PCI/BLANKA to the proximal LAD 3. Acute systolic CHF; appears compensated 4. Ischemic cardiomyopathy; echo with LVEF 30-35% with anterior, apical, and anteroseptal hypokinesis. 5. Arrhythmia; tele noted brief burst of NSVT on 11/21. Mg was 1.6 6. Hyperlipidemia; statin 7. Hypokalemia, hypomagnesemia; replaced Recommendations Secondary prevention including DAPT with ASA and Plavix (correctional facility would not cover Brilinta) Convert metoprolol to Toprol for HF optimization Continue lisinopril as BP allows Risk stratification modification LifeVest recommended given ischemic cardiomyopathy- order form completed and faxed to correctional facility to be arranged per their request Follow up with costume maker, Dr. Lee in 4-6 weeks and outpatient echocardiogram (to re-assess LV systolic function) in 3 months. Please call [phone] to arrange. Cardiac rehab referral May discharge from a CV standpoint Justicifation of Admission Dx: Justifications for Admission: Justification of Admission Dx: Yes [place]: Acute STEMI IVAN LEE MD 11/22/21 1556: CARDIO Progress Notes Assessment Assessment Patient seen and examined He reports feeling well and denies chest pain. I agree with our nurse practitioners assessment and plan. 1. STEMI. Clinically doing well. Medical treatment as above. 2. CAD s/p PCI/BLANKA to the proximal LAD 3. Acute systolic CHF; appears compensated 4. Ischemic cardiomyopathy; echo with LVEF 30-35% with anterior, apical, and anteroseptal hypokinesis. Attempting to obtain a LifeVest as outlined below. Follow-up visit in approximately a month with a repeat echo in 3 months to evaluate the extent of LV recovery post [place]. 5. Arrhythmia; tele noted brief burst of NSVT on 5/8. Mg was 1.6 6. Hyperlipidemia; statin 7. Hypokalemia, hypomagnesemia; replaced DAVID SILVER APRN November 22, 2021 13:13 IVAN LEE MD November 22, 2021 15:56
[2021-11-22] MEDS ORDERED: ATOR40TA59 PO (14:33)
[2021-11-22] MEDS ORDERED: CLOP75TA PO (14:33)
[2021-11-22] MEDS ORDERED: METO-239 PO (14:33)
[2021-11-22] MEDS: ATORVASTATIN CALCIUM 40 MG TABLET. PO SCH (21:33)
[2021-11-23 04:00] VITALS: BP 102/61
[2021-11-23 08:00] VITALS: BP 110/55
[2021-11-23] MEDS: ELECTROLYTE (ICU) PROTOCOL. MC SCH (09:00)
[2021-11-23] MEDS: SENNOSIDES/DOCUSATE 8.6/50MG TABLET. PO SCH ×2 (09:00→21:00)
[2021-11-23] MEDS: ASPIRIN ENTERIC COATED 81 MG TABLET.DR. PO SCH (09:06)
[2021-11-23] MEDS: ATORVASTATIN CALCIUM 40 MG TABLET. PO SCH (09:09)
[2021-11-23] MEDS: LISINOPRIL 5 MG TABLET. PO SCH (09:09)
[2021-11-23] MEDS: METOPROLOL SUCC 24HR ER 25 MG TAB.ER.24H. PO SCH (09:10)
[2021-11-23] MEDS: CLOPIDOGREL BISULFATE 75 MG TABLET PO SCH (09:10)
--- NOTE | 2021-11-23 09:54 | PDOC ---
[facility] [facility] PROGRESS NOTE Date of Service DOS: DATE: 11/23/21 TIME: 09:53 Chief Complaint Chief Complaint Acute [place] CAD Status post cardiac catheterization Proximal LAD occlusion with no other significant lesions. Successful placement of a 3.0 x 38 drug-eluting stent. History of Present Illness History of Present Illness 11/23/2021 Patient seen His discharge was held yesterday due to unavailability of LifeVest (the senior living captain needs to arrange it) Discussed with case management Discussed with RN 11/22/2021 Patient seen and examined Once again he has 2 corrections officers present and he is shackled Discussed with RN Discussed with case management Chart reviewed We hope to discharge this afternoon 11/21/2021 Patient seen and examined Discussed with RN Chart reviewed He has 2 corrections officers present He is shackled No chest pain today Discussed with Dr. Mesa Vitals/I&O Vitals/I&O: Vital Signs Date Time Temp Pulse Resp B/P (MAP) Pulse Ox O2 Delivery O2 Flow Rate FiO2 11/23/21 09:10 80 110/55 11/23/21 08:00 98.7 16 100 Room Air 98.7 I & O 11/22/21 11/22/21 11/23/21 15:00 23:00 07:00 Intake Total 750 ml 300 ml Output Total 2 ml Balance 750 ml 298 ml Physical Exam General: No acute distress Heart: Regular rate Abdomen: Normal bowel sounds Assessment and Plan Assessmemt and Plan Problems Medical Problems: (1) STEMI (ST elevation myocardial infarction) Status: Acute Acute NV CAD Status post cardiac catheterization Proximal LAD occlusion with no other significant lesions. Successful placement of a 3.0 x 38 drug-eluting stent. Plan Probable discharge this morning back to [facility] with LifeVest once the senior living arranges it For now continue the following Cardiac monitoring Brilinta Cardiac cocktail (i.e. statins antiplatelet drugs beta-blockers NATE inhibitors etc.) Home meds DVT prophylaxis Full code Echocardiogram Comment Review of Relevant I have reviewed the following items leatha (where applicable) has been applied. Medications: Current Medications Medications (Trade) Dose Ordered Sig/Jonathan Route PRN Reason Start Time Stop Time Status Last Admin Dose Admin Atorvastatin Calcium (Lipitor) 40 mg QHS PO 11/22/21 21:00 11/23/21 09:09 Metoprolol Succinate (Toprol Xl) 12.5 mg DAILY PO 11/23/21 09:00 11/23/21 09:10 Clopidogrel Bisulfate (Plavix) 75 mg DAILYWBKFT PO 11/23/21 08:00 11/23/21 09:10 Justifications for Admission Other Justification MIQUEL SENIOR III DO November 23, 2021 09:54
[2021-11-23 12:00] VITALS: BP 119/59
--- NOTE | 2021-11-23 12:22 | EKG ---
[facility] [address] [place] [address] Test Date: 2021-11-20 Test Time: 13:47:53 Pat Name: OMI PAREDES Department: Room: 113 1 Gender: M Unit Receptionist: : 1980 Requested By: AUGUSTINE RENO Order Number: [id number] Reading MD: Sidney Leigh MD Measurements Intervals [place] Rate: 62 P: 45 OK: 156 QRS: 17 QRSD: 96 T: -4 QT: 390 QTc: 398 Interpretive Statements SINUS RHYTHM STEMI Electronically Signed On 11-23-2021 11:27:37 CDT by Sidney Leigh MD
--- NOTE | 2021-11-23 14:33 | PDOC ---
CARDIO Progress Notes Date and Time Date of Service 11/23/2021 Time of Evaluation 1420 Subjective Subjective: No Chest Pain, No shortness of breath, No Palpitations Vitals Vitals Vital Signs Date Time Temp Pulse Resp B/P (MAP) Pulse Ox O2 Delivery O2 Flow Rate FiO2 11/23/21 12:00 98.5 83 16 119/59 (79) 100 Room Air 98.5 Weight Weight [ ] Input and Output Intake and Output Intake and Output 11/23/21 07:00 Intake Total 1050 ml Output Total 2 ml Balance 1048 ml Intake Oral 1050 ml Output Urine Total 2 ml # Voids 3 # Bowel Movements 1 Physical Exam HEENT: Neck Supple W Full Motion Chest: Symmetric LUNGS: Clear to Auscultation Heart: RRR (SR) Abdomen: Soft N/T Extremities: No Edema, Other (right groin arteriotomy site soft, clean, and dry. No hematoma present. Neurovascular status intact. ) Neurology: alert, oriented, follow commands Assessment Assessment 1. Anteroseptal STEMI 2. CAD s/p PCI/BLANKA to the proximal LAD 3. Acute systolic CHF; appears compensated 4. Ischemic cardiomyopathy; echo with LVEF 30-35% with anterior, apical, and anteroseptal hypokinesis. 5. Arrhythmia; tele noted brief burst of NSVT, none overnight 6. Hyperlipidemia; statin 7. Hypokalemia, hypomagnesemia; replaced Recommendations Secondary prevention including DAPT with ASA and Plavix (correctional facility would not cover Brilinta) Toprol/lisinopril LifeVest recommended, awaiting approval from [facility] [facility] ins per staff Follow up with dinkey engine mechanic, Dr. Mesa in 4-6 weeks and outpatient echocardiogram (to re-assess LV systolic function) in 3 months. Please call [phone] to arrange. Cardiac rehab referral May discharge from a CV standpoint Justicifation of Admission Dx: Justifications for Admission: Justification of Admission Dx: Yes [place]: Acute STEMI CACHORRO MOYA DIRECTOR OF CARDIOPULMONARY SERVICES November 23, 2021 14:33
[2021-11-23 16:00] VITALS: BP 115/56
[2021-11-23 20:00] VITALS: BP 104/52
[2021-11-24 00:05] VITALS: BP 98/52
[2021-11-24 05:23] VITALS: BP 112/58
[2021-11-24] MEDS: SENNOSIDES/DOCUSATE 8.6/50MG TABLET. PO SCH (07:44)
[2021-11-24] MEDS: ELECTROLYTE (ICU) PROTOCOL. MC SCH (07:44)
[2021-11-24 08:00] VITALS: BP 103/62
[2021-11-24] MEDS: ASPIRIN ENTERIC COATED 81 MG TABLET.DR. PO SCH (08:11)
[2021-11-24] MEDS: CLOPIDOGREL BISULFATE 75 MG TABLET PO SCH (08:11)
[2021-11-24] MEDS: LISINOPRIL 5 MG TABLET. PO SCH (08:11)
[2021-11-24 08:12] VITALS: BP 103/62
[2021-11-24] MEDS: METOPROLOL SUCC 24HR ER 25 MG TAB.ER.24H. PO SCH (08:12)
--- NOTE | 2021-11-24 10:21 | PDOC ---
CARDIO Progress Notes Date and Time Date of Service 11/24/2021 Time of Evaluation 0910 Subjective Subjective: No Chest Pain, No shortness of breath, No Palpitations Vitals Vitals Vital Signs Date Time Temp Pulse Resp B/P (MAP) Pulse Ox O2 Delivery O2 Flow Rate FiO2 11/24/21 08:12 70 103/62 11/24/21 08:00 97.8 16 96 Room Air 97.8 Weight Weight [ ] Input and Output Intake and Output Intake and Output 11/24/21 07:00 Intake Total 1620 ml Output Total 5 ml Balance 1615 ml Intake Oral 1620 ml Output Urine Total 5 ml Physical Exam HEENT: Neck Supple W Full Motion Chest: Symmetric LUNGS: Clear to Auscultation Heart: RRR (SR) Abdomen: Soft N/T Extremities: No Edema, Other (right groin arteriotomy site soft, clean, and dry. No hematoma present. Neurovascular status intact. ) Neurology: alert, oriented, follow commands Assessment Assessment 1. Anteroseptal STEMI 2. CAD s/p PCI/BLANKA to the proximal LAD 3. Acute systolic CHF; appears compensated 4. Ischemic cardiomyopathy; echo with LVEF 30-35% with anterior, apical, and anteroseptal hypokinesis. 5. Arrhythmia; tele noted brief burst of NSVT, none overnight 6. Hyperlipidemia; statin 7. Hypokalemia, hypomagnesemia; replaced Recommendations Secondary prevention including DAPT with ASA and Plavix (correctional facility would not cover Brilinta) Toprol/lisinopril LifeVest today Follow up with collar setter overlock, Dr. Mesa in 4-6 weeks and outpatient echocardiogram (to re-assess LV systolic function) in 3 months. Please call [phone] to arrange. Cardiac rehab referral May discharge from a CV standpoint Justicifation of Admission Dx: Justifications for Admission: Justification of Admission Dx: Yes MD: Acute STEMI CACHORRO MOYA LAMINATION INSPECTOR November 24, 2021 10:21
--- NOTE | 2021-11-24 10:59 | PDOC ---
[employer] PROGRESS NOTE Date of Service DOS: DATE: 11/24/21 TIME: 10:59 Chief Complaint Chief Complaint Acute [place] CAD Status post cardiac catheterization Proximal LAD occlusion with no other significant lesions. Successful placement of a 3.0 x 38 drug-eluting stent. History of Present Illness History of Present Illness 11/24/2021 Patient seen and examined His discharge was held again yesterday due to unavailability of LifeVest He is scheduled to get his LifeVest today at 930 and then discharge 11/23/2021 Patient seen His discharge was held yesterday due to unavailability of LifeVest (the skilled nursing captain needs to arrange it) Discussed with case management Discussed with RN 11/22/2021 Patient seen and examined Once again he has 2 corrections officers present and he is shackled Discussed with RN Discussed with case management Chart reviewed We hope to discharge this afternoon 11/21/2021 Patient seen and examined Discussed with RN Chart reviewed He has 2 corrections officers present He is shackled No chest pain today Discussed with Dr. Mesa Vitals/I&O Vitals/I&O: Vital Signs Date Time Temp Pulse Resp B/P (MAP) Pulse Ox O2 Delivery O2 Flow Rate FiO2 11/24/21 08:12 70 103/62 11/24/21 08:00 97.8 16 96 Room Air 97.8 I & O 11/23/21 11/23/21 11/24/21 15:00 23:00 07:00 Intake Total 1200 ml 420 ml Output Total 2 ml 3 ml Balance 1198 ml 417 ml Physical Exam General: No acute distress Heart: Regular rate Abdomen: Normal bowel sounds Assessment and Plan Assessmemt and Plan Problems Medical Problems: (1) STEMI (ST elevation myocardial infarction) Status: Acute Redischarge after LifeVest has been fitted at ninth Comment Review of Relevant I have reviewed the following items leatha (where applicable) has been applied. Justifications for Admission Other Justification MIQUEL SENIOR III DO November 24, 2021 10:59
--- NOTE | 2021-11-24 11:07 | NUR ---
Patient discharged at 1045 accompanied by Retirement personnel. Education related to post cath instructions and discharge medications given to the patient. The LifeVest was fitted prior to discharge. A card with the cardiology office number given to patient to set up a follow up appointment in a month. Patient discharged with shorts, socks and shoes, and long sleeve shirt.
--- NOTE | 2021-11-25 12:09 | DS ---
DATE OF DISCHARGE: 11/24/2021 ADMITTING DIAGNOSIS: Acute myocardial infarction. DISCHARGE DIAGNOSIS: Status post cardiac catheterization with stent to the LAD. HOSPITAL COURSE: The patient is a pleasant middle-aged male who presented from the [facility] where he has been residing for the past 9 years. Basically, he had chest pain, he was noted to have ST elevations and elevations of his troponin. Dr. Mesa taken him to the sugar laboratory assistant and had to place a stent to the LAD. Post-procedure, he did well. Yesterday, I saw him and examined him. He is doing well. We discharged back to the [facility] with a LifeVest. DISPOSITION: Back to [facility] with LifeVest. ACTIVITY: As tolerated. DIET: Cardiac. MEDICATIONS: Aspirin 81 a day, atorvastatin 40 a day, Plavix 75 a day, lisinopril 5 a day, metoprolol 25 a day and p.r.n. nitro. TOTAL TIME: 31 minutes. JEREMIAS/GUSTABO DR: Carlene TID: [id number]
== END 2021-11-24 10:45 | DRG 246 ==
LOC: ER 13:42 → EEVIPCON 14:30 → 1 WEST ICU 14:30
PROVIDERS: ADMIT Student in an Organized Health Care Education/Training Program; ATTEND Student in an Organized Health Care Education/Training Program
PROC: 027034Z Dilation of Coronary Artery, One Artery with Drug-eluting Intraluminal Device, Percutaneous Approach (ICD-10-PCS; principal; 2021-11-20)
PROC: 4A023N7 Measurement of Cardiac Sampling and Pressure, Left Heart, Percutaneous Approach (ICD-10-PCS; 2021-11-20)
PROC: B211YZZ Fluoroscopy of Multiple Coronary Arteries using Other Contrast (ICD-10-PCS; 2021-11-20)
DX: I21.09 ST elevation (STEMI) myocardial infarction involving other coronary artery of anterior wall (principal); I50.21 Acute systolic (congestive) heart failure; I47.2 Ventricular tachycardia; E78.5 Hyperlipidemia, unspecified; E83.42 Hypomagnesemia; E87.6 Hypokalemia; I25.10 Atherosclerotic heart disease of native coronary artery without angina pectoris; I25.2 Old myocardial infarction; Z82.49 Family history of ischemic heart disease and other diseases of the circulatory system; I25.5 Ischemic cardiomyopathy
CPT/HCPCS: 92941; 93458; 99285; G0269; 36415; 71045; 80048; 80061; 80076; 83735; 84100; 84484; 85025; 93005; 93306; 99152; 99153; C1725; C1769; C1894; J0583; J1265; J1644; J2250; J2405; J3010; J3475; J3480; J3490; J7030; Q9967; C1874; C8929; G0378